=== PATIENT | male | born 1995 | race Caucasian/White ===

== ENCOUNTER 2019-07-29 11:58 | Emergency (ER) | payer OTHER, SELFPAY ==
[2019-07-29] MEDS ORDERED: Lidocaine 1% PF 5 ML VIAL ONE (12:12)
[2019-07-29] MEDS ORDERED: HYDROcodone/Acetaminophen 10/325 mg Tablet ONE (13:10)
[2019-07-29] MEDS ORDERED: Adacel (T-DAP) 0.5 ML SYRINGE ONE (13:11)
[2019-07-29] MEDS ORDERED: Lidocaine 1% (PF) 30 ML VIAL ONE (14:13)
[2019-07-29] MEDS ORDERED: Bacitracin 1 PK ONE (14:30)
--- NOTE | 2019-07-31 07:40 | RAD ---
EXAM: 3 views of the right wrist HISTORY: Right wrist laceration COMPARISON: None FINDINGS: 3 views of the right wrist shows no evidence of acute fracture or dislocation. No soft tiss ue swelling is seen. No degenerative changes are present. No radiopaque foreign body is seen. IMPRESSION: No evidence of acute osseous abnormality.
== END 2019-07-29 14:34 | disposition home or self-care (01) ==
LOC: ERS 11:58
DX: S61.511A Laceration without foreign body of right wrist, initial encounter (principal); F17.210 Nicotine dependence, cigarettes, uncomplicated; Z23 Encounter for immunization; Z71.6 Tobacco abuse counseling; W26.8XXA Contact with other sharp object(s), not elsewhere classified, initial encounter
CPT/HCPCS: 12002; 90471; 90715; 99406; J2001